=== PATIENT | female | born 1945 | race American Indian/Alaskan Native ===

== ENCOUNTER 2017-01-28 12:30 | Outpatient (CLI) | payer MEDICARE ==
--- NOTE | 2017-01-28 14:19 | XRay Report ---
Right hip 3 views. Findings: There is minimal narrowing of the joint space. There no fractures or other acute findings. Bony mineralization is normal. Extensive vascular calcifications are noted. Impression: Mild DJD.
== END 2017-01-28 12:31 | disposition home or self-care (01) ==
LOC: XRAY 12:30
PROVIDERS: ATTEND Internal Medicine Nephrology
DX: M16.11 Unilateral primary osteoarthritis, right hip (principal); M25.851 Other specified joint disorders, right hip; M54.5 Low back pain; R10.2 Pelvic and perineal pain